=== PATIENT | female | born 1985 | race Caucasian/White ===

== ENCOUNTER 2016-10-21 20:37 | Inpatient (IN) | payer OTHER ==
[2016-10-21 21:45] VITALS: BMI 29.0
[2016-10-21] MEDS ORDERED: OXYTOCIN IN LR 500 ML IV ONE ×2 (23:20→23:48)
[2016-10-21] MEDS ORDERED: LIDOCAINE 1% (PRES FREE) 30 ML VIAL ONE (23:47)
[2016-10-21] MEDS ORDERED: OXYTOCIN 10 UNITS/ML VIAL ONE (23:47)
[2016-10-21] MEDS ORDERED: MINERAL OIL 25 ML BOT ONE (23:47)
[2016-10-21] MEDS ORDERED: PUMP TUBING ONE (23:48)
[2016-10-21] MEDS ORDERED: LIDOCAINE Viscous 2% 15 ML UDCUP ONE (23:48)
[2016-10-21] MEDS ORDERED: IV START KIT ONE (23:49)
[2016-10-21] MEDS ORDERED: LACTATED RINGERS 1,000 ML ONE (23:49)
[2016-10-22] MEDS ORDERED: EPIDURAL PUMP SET ONE (00:27)
[2016-10-22] MEDS ORDERED: FENTANYL/ROPIVACAINE EPIDURAL 250 ML EP ONE (00:28)
[2016-10-22] MEDS ORDERED: LACTATED RINGERS 1,000 ML IV SCH ×2 (00:45→01:55)
[2016-10-22] MEDS ORDERED: EPIDURAL PROCEDURE TRAY ONE (00:45)
[2016-10-22] MEDS: LACTATED RINGERS 1,000 ML IV PRN ×3 (00:45→04:06)
[2016-10-22 00:46] LABS: HEMATOCRIT 41.2 % (37.0-47.0); HEMOGLOBIN 13.6 gm/l (12.0-16.0); MEAN CELL VOLUME 89.6 fl (81.0-99.0); MEAN CORPUSCULAR HEMOGLOBIN 29.6 pg (27.0-31.0); RED CELL DISTRIBUTION WIDTH 13.9 % (11.5-14.5)
[2016-10-22] MEDS ORDERED: ONDANSETRON 4 MG/2ML 2 ML VIAL IV PRN (01:55)
[2016-10-22] MEDS ORDERED: DIPHENHYDRAMINE HCL 50 MG/1 ML VIAL IV PRN (01:55)
[2016-10-22] MEDS ORDERED: EPHEDRINE SULFATE 50 MG/ML 1ML VIAL IV PRN (01:55)
[2016-10-22] MEDS ORDERED: NALBUPHINE HCL 20 MG/ML AMP IV PRN (01:55)
[2016-10-22] MEDS ORDERED: NALOXONE HCL 0.4 MG/ML VIAL IV PRN (01:55)
[2016-10-22] MEDS ORDERED: METOCLOPRAMIDE HCL 5 MG/ML 2ML VIAL IV PRN (01:55)
[2016-10-22] MEDS ORDERED: SODIUM CHLORIDE 0.9% 500 ML IV PRN (01:55)
[2016-10-22] MEDS ORDERED: LACTATED RINGERS 500 ML IV PRN (01:55)
--- NOTE | 2016-10-22 02:56 | PCMAN ---
OB Admission Note - History : 2 Term: 1 : 0 Abortions (S&E): 0 Livin Gestational Age (weeks): 39 Days (#/7): 1 Admit Cervical Dilation:: 7.5 Admit Cervical Effacement (%):: 70 Admit Station:: -1 Admit Presentaton:: vertex Membrane Status: Intact Rupture (Date): 10/22/16 Rupture (Time): 02:25 Membranes Comment:: clear w/some light stained blood Labor Onset (Date): 10/21/16 Labor Onset (Time): 22:15 Contractions: Yes Contraction Frequency:: 5-6 Heart Rate:: 125 Summary of Course:: S: 30 y/o @ 39 2/7 wks GA by LMP c/w 10 wk U/S. No complications. Smoked early in the and then quit. Pt. presented to L&D today w/ c.c. of worsening ctxs., since 2029. Walked around the unit and by 2214 ctxs. were intensified and she was found to have made cervical change so she was admitted. - Labs Blood Type: A (+) positive (ANtibody ngtv) Rubella Status: Immune GBS Status: Negative Abnormal Labs: None Other Labs:: EFM on admit 2051- 212110/21/16 : BL 120's; minimal- Mod. variability. + accs. NO decelerations Category 1 strip ctxs 3-5min apart EFM @ 200-230AM on 10/22/16 BL 125; Mod. variability. + accs. NO decelerations Category 1 strip ctxs: Q 5-6 min apart AROM performed blood tinged fluid. - Physical Exam General: Afebrile Psych/Mental Status: Mood/Affect Appropriate Neurological: Alert HEENT: EOMI, Mucous membr. moist/pink Lungs: Clear to Auscultation Bilaterally Cardiovascular: Regular Rate and Rhythm Genitourinary: Normal Female Genitalia Rectal Exam: Deferred Skin: Normal Color, Warm - Problems (1) Normal labor Status: Acute Code: [id number]/Plan: A/P: 30 y/o female adequate progression of labor anticipate AROM performed w/o any difficulty
--- NOTE | 2016-10-22 05:30 | PCMDEL ---
Delivery Note - Labor 1st stage (hr/min):: 2nd stage (hr/min):: 3rd stage (hr/min):: Total (hr/min):: 02/17 - Delivery Delivery (Date): 10/22/16 Delivery (Time): 04:58 Gender: Female Presentation: Cephalic Position: OA (partial R hand presentation) Umbilical Cord: 3 Vessel Delayed Cord Clamping:: > 3 min 1 Minute Total: 9 5 Minute Total: 9 Placenta:: intact EBL:: 100ml Perineum:: R 1st degree vaginal tear. L 1st degree periurethral Suture:: 4-0 vicryl Anesthesia/Meds:: LEP Length ROM:: 2'33"
[2016-10-22] MEDS ORDERED: LANOLIN 50 APPLIC/7G TUBE TP PRN (05:32)
[2016-10-22] MEDS ORDERED: DOCUSATE SODIUM 100 MG CAPSULE PO PRN (05:32)
[2016-10-22] MEDS ORDERED: MAGNESIUM HYDROXIDE 30 ML UDCUP PO PRN (05:32)
[2016-10-22] MEDS ORDERED: BENZOCAINE/MENTHOL 60 APPLIC/BOT TP PRN (05:32)
[2016-10-22] MEDS ORDERED: FENTANYL/ROPIVACAINE EPIDURAL 250 ML EP SCH (06:00)
[2016-10-22] MEDS: IBUPROFEN 800 MG TABLET PO PRN ×3 (10:17→23:10)
[2016-10-22] MEDS: HYDROCODONE/ACETAMINOPHEN 5/325MG TABLET PO PRN ×2 (12:33→18:01)
[2016-10-23] MEDS: HYDROCODONE/ACETAMINOPHEN 5/325MG TABLET PO PRN ×3 (04:40→13:29)
[2016-10-23 06:29] LABS: HEMATOCRIT 35.3 % (37.0-47.0); HEMOGLOBIN 11.7 gm/l (12.0-16.0)
[2016-10-23 07:38] VITALS: BP 111/74
[2016-10-23] MEDS: IBUPROFEN 800 MG TABLET PO PRN (07:46)
--- NOTE | 2016-10-23 10:15 | PDOC39B ---
Hospital Course: ADMIT DATE: 10/21/16 DISCHARGE DATE: 10/23/16 ADMISSION DIAGNOSES: 39 wk IUP Normal labor PROCEDURES: HISTORY OF PRESENT ILLNESS: 30 year old G2 T1 L1 at 39 weeks 3 days presenting with worsening ctxs. See full HPI. HOSPITAL COURSE: The patient was admitted. Had normal progression of labor. Had w/o complications. See Delivery note for full details. By day of discharge the patient was ambulating, eating, voiding, and passing flatus without difficulty. Pain was controlled and lochia was appropriate. She was . - Physical Exam Vital Signs: Temp Pulse Resp BP Pulse Ox 98.1 F 69 16 111/74 10/23/16 07:36 10/23/16 07:36 10/23/16 07:36 10/23/16 07:36 General: Afebrile Psych/Mental Status: Mood/Affect Appropriate, Judgment/Insight Intact, Bonding Well Neurological: Alert HEENT: Mucous membr. moist/pink Lungs: Clear to Auscultation Bilaterally Cardiovascular: Regular Rate and Rhythm, Normal S1, Normal S2 Breast: Soft, Skin intact Fundus: Firm, At Umbilicus Abdomen: Normal Bowel Sounds - Discharge Plan Condition: Good Disposition: Home Follow-Up: Marquita Gilliland MD [Primary Care Provider] - In 6 weeks
[2016-10-23] MEDS ORDERED: MEASLES,MUMPS&RUBELLA VACCINE 0.5 ML VIAL SUB-Q V ONE (12:48)
[2016-10-23] MEDS ORDERED: IV START KIT ONE (21:53)
== END 2016-10-23 13:38 | disposition home or self-care (01) | DRG 775 ==
LOC: FBCOUT 20:37 → FBC 20:44 → FBCOUT 23:22
PROVIDERS: ADMIT Family Medicine; ATTEND Family Medicine
PROC: 10E0XZZ Delivery of Products of Conception, External Approach (ICD-10-PCS; principal; 2016-10-22)
PROC: 0UQG0ZZ Repair Vagina, Open Approach (ICD-10-PCS; 2016-10-22)
PROC: 0UQMXZZ Repair Vulva, External Approach (ICD-10-PCS; 2016-10-22)
PROC: 10907ZC Drainage of Amniotic Fluid, Therapeutic from Products of Conception, Via Natural or Artificial Opening (ICD-10-PCS; 2016-10-22)
PROC: 00HU33Z Insertion of Infusion Device into Spinal Canal, Percutaneous Approach (ICD-10-PCS; 2016-10-22)
DX: O32.2XX0 Maternal care for transverse and oblique lie, not applicable or unspecified (principal); O71.4 Obstetric high vaginal laceration alone; Z3A.39 39 weeks gestation of pregnancy; Z37.0 Single live birth; Z87.891 Personal history of nicotine dependence

== ENCOUNTER 2016-10-26 13:55 | Outpatient (CLI) | payer OTHER | END 2016-10-26 13:56 | disposition home or self-care (01) | LOC: BABIESSH 13:55 | PROVIDERS: ATTEND Family Medicine | DX: Z39.1 Encounter for care and examination of lactating mother (principal) ==